=== PATIENT | male | born 1975 | race Caucasian/White ===

== ENCOUNTER 2016-09-27 04:55 | Emergency (ER) | payer BC ==
[~2016-09-27] VITALS: Ht 182.9 cm; Wt 90.1 kg
[2016-09-27 05:01] VITALS: TEMP 37; Ht 182.9 cm; Wt 90.1 kg
[2016-09-27] MEDS ORDERED: ONDANSETRON INJ 2 MG/ML 2 ML VIAL IV STA (05:19)
[2016-09-27] MEDS ORDERED: KETOROLAC TROMETHAMINE 30 MG/ML VIAL IV STA (05:19)
[2016-09-27] MEDS ORDERED: SODIUM CHLORIDE 0.9% 1000ML 1,000 ML IV STA ×2 (05:19)
[2016-09-27] MEDS ORDERED: OPTIRAY 320 IV PRN (05:30)
[2016-09-27 05:43] LABS: URINE APPEARANCE CLEAR (CLEAR); URINE BILIRUBIN NEG (NEG); URINE COLOR DK YELLOW; URINE EPITHELIAL CELL AUTO 0-5 /lpf (0-5); URINE NITRITE NEG (NEG); URINE SPECIFIC GRAVITY 1.024 (1.000-1.030); UROBILINOGEN NEG (NEG); ZZUR CULT IF INDIC CLEAN CATCH NO
[2016-09-27 05:49] LABS: MANUAL MICROSCOPIC REQUIRED? NO; REVIEW REQ? NO
[2016-09-27 06:01] LABS: BASO % 0.2 %; BASO ABS # 0.02 K/uL (0-0.2); COMPLETE YES; EOS % 0.4 %; HEMATOCRIT 43.4 % (42-52); IG% 0.2 %; LYMPH % 17.7 %; LYMPH ABS # 2.02 K/uL (1.2-3.4); MEAN CELL VOLUME 86.6 fL (80-100); MEAN CORPUSCULAR HEMOGLOBIN 32.5 pg (25-34); MEAN CORPUSCULAR HGB CONC 37.6 g/dl (32-36); MEAN PLATELET VOLUME 9.8 fL (7.4-10.4); MONO % 6.4 %; NEUT % 75.1 %; PLATELET COUNT 189 K/uL (130-400); RED BLOOD COUNT 5.01 M/uL (4.7-6.1); WHITE BLOOD COUNT 11.42 K/uL (4.8-10.8)
[2016-09-27 06:03] LABS: ISTAT CREATININE 0.8 mg/dl (0.6-1.3); ISTAT IONIZED CALCIUM 1.19 mmol/l (1.12-1.32)
[2016-09-27 06:09] LABS: CALCIUM 9.2 mg/dl (8.5-10.1); CREATININE 0.93 mg/dl (0.60-1.40); POTASSIUM 3.8 mmol/L (3.5-5.1)
[2016-09-27] MEDS ORDERED: METRONIDAZOLE 250 MG TAB PO STA (06:47)
[2016-09-27] MEDS ORDERED: CIPROFLOXACIN 400MG / 200ML D5W IV STA (06:47)
[2016-09-27] MEDS ORDERED: METRONIDAZOLE 500MG / 100ML NSS IV STA (06:47)
[2016-09-27] MEDS ORDERED: CIPR-255 PO (06:51)
[2016-09-27] MEDS ORDERED: METR-163 PO (06:51)
--- NOTE | 2016-09-27 06:56 | DIAGNOSTIC IMAGING REPORT ---
TESTICULAR ULTRASOUND HISTORY: Pain right test pain COMPARISON: None. FINDINGS: Right testis: There are no intratesticular masses. Normal color flow. No hydrocele. The epididymis is unremarkable. Left testis: There are no intratesticular masses. Normal color flow. No hydrocele. The epididymis is unremarkable. IMPRESSION: Normal testicular ultrasound. Electronically signed by: Gene Goodson M.D. 09/27/2016 6:55 AM Dictated Date/Time: 09/27/2016 6:54 AM
[2016-09-27] MEDS ORDERED: CIPROFLOXACIN 500MG HOME PACK PO ONE (07:00)
[2016-09-27] MEDS ORDERED: OXYCODONE IR HOME PACK PO ONE (07:00)
[2016-09-27] MEDS ORDERED: ONDANSETRON HOME PACK 4MG OD TAB PO ONE (07:00)
--- NOTE | 2016-09-27 07:05 | DIAGNOSTIC IMAGING REPORT ---
ABDOMEN AND PELVIS CT WITH IV CONTRAST CT DOSE: 422.18 mGy.cm HISTORY: Pain lower abd pain TECHNIQUE: Multiaxial CT images of the abdomen and pelvis were performed following the use of intravenous contrast. COMPARISON STUDY: None. FINDINGS: Lung bases are clear. Mild fatty infiltration of liver. Spleen is unremarkable. Kidneys negative for hydronephrosis. Upper abdominal bowel pattern is nonobstructive. Within the pelvis there are findings of thickening of the proximal to mid sigmoid colonic wall. Pericolonic infiltrative changes present. No evidence for abscess collection or obstruction. The appendix is normal. IMPRESSION: 1. Acute proximal to mid sigmoid diverticulitis. 2. No evidence for abscess collection or obstruction Electronically signed by: Gene Goodson M.D. 09/27/2016 7:03 AM Dictated Date/Time: 09/27/2016 7:02 AM
[2016-09-27] MEDS ORDERED: EMPTY 8 DRAM VIAL ONE (07:30)
[2016-09-27 08:30] VITALS: BP 121/76; PULSE 78; O2SAT 98
--- NOTE | 2016-09-28 01:06 | EMERGENCY ROOM VISIT NOTE ---
History First contact with patient: 05:12 Chief Complaint: ABDOMINAL PAIN Stated Complaint: SEVERE LWR ABDOMINAL PAIN History of Present Illness The patient is a 41 year old male who presents to the Emergency Room with complaints of lower abdominal pain for the past 2 days that is steadily getting worse with right testicular pain. He describes pain as cramping, ranging in severity currently 5 out of 10. Nothing makes it better or worse. No colonoscopy in the past. Patient denies nausea, vomiting, diarrhea, penile pain , urinary symptoms, back pain, chest pain, dyspnea. He is tolerating by mouth fluids and food. No history of similar symptoms in the past. He is in a monogamous relationship. Review of Systems See HPI for pertinent positives & negatives. A total of 10 systems reviewed and were otherwise negative. Past Medical/Surgical History Gastritis Social History Smoking Status: Never Smoker Drug Use: none Marital Status: Housing Status: lives with family Occupation Status: employed Current/Historical Medications Scheduled Ciprofloxacin Hcl (Cipro), 500 MG PO BID Metronidazole (Flagyl), 500 MG PO TID Allergies Coded Allergies: Penicillin V (Verified Allergy, Mild, UNKNOWN, 09/27/16) Physical Exam Vital Signs Date Time Temp Pulse Resp B/P Pulse Ox O2 Delivery O2 Flow Rate FiO2 09/27/16 08:30 78 18 121/76 98 09/27/16 05:01 37.0 85 20 142/82 96 Room Air Physical Exam VITALS: Vitals are noted on the nurse's note and reviewed by myself. Vital signs stable. GENERAL: Pleasant male, in no acute distress, nondiaphoretic, well-developed well-nourished. SKIN: The skin was without rashes, erythema, edema, or bruising. There is no tenting of the skin. Capillary reflex less than 2 seconds. HEAD: Normocephalic atraumatic. EARS: External auditory canals clear, tympanic membranes pearly silva without erythema or effusion bilaterally. EYES: Pupils equal round and reactive to light and accommodation. Conjunctivae without injection, sclerae without icterus. Extraocular movements intact. NOSE: Patent, turbinates without inflammation or discharge. MOUTH: Mucous membranes moist. Pharynx without erythema or exudate. Uvula midline. Airway patent. Tongue does not deviate. NECK: Supple without nuchal rigidity. No lymphadenopathy. No thyromegaly. Cervical spine is nontender. No JVD. HEART: Regular rate and rhythm without murmurs gallops or rubs. LUNGS: Clear to auscultation bilaterally without wheezes, rales or rhonchi. No dullness to percussion. No retractions or accessory muscle use. ABDOMEN: Positive bowel sounds x 4. Normal tympanic percussion. Soft, tender to palpation lower abdomen, no CVA tenderness, without masses or organomegaly. Pulido sign negative. No guarding or rebound tenderness. exam: Right epididymis tender to palpation, no lesions or rashes appreciated. Left testicle normal. Seamer Panty Hose present MUSCULOSKELETAL: No muscle atrophy, erythema, or edema noted. NEURO: Patient was alert and oriented to person place and time. Normal sensation to light and sharp touch. No focal neurological deficits. Medical Decision & Procedures Laboratory Results 09/27/16 05:40 Red Blood Count 5.01, Mean Corpuscular Volume 86.6, Mean Corpuscular Hemoglobin 32.5, Mean Corpuscular Hemoglobin Concent 37.6, Mean Platelet Volume 9.8, Neutrophils (%) (Auto) 75.1, Lymphocytes (%) (Auto) 17.7, Monocytes (%) (Auto) 6.4, Eosinophils (%) (Auto) 0.4, Basophils (%) (Auto) 0.2, Neutrophils # (Auto) 8.58, Lymphocytes # (Auto) 2.02, Monocytes # (Auto) 0.73, Eosinophils # (Auto) 0.05, Basophils # (Auto) 0.02 09/27/16 05:40 Test 09/27/16 05:25 09/27/16 05:40 09/27/16 05:50 Urine Color DK YELLOW Urine Appearance CLEAR (CLEAR) Urine pH 5.0 (4.5-7.5) Urine Specific [place] 1.024 (1.000-1.030) Urine Protein NEG (NEG) Urine Glucose (UA) NEG (NEG) Urine Ketones TRACE (NEG) Urine Occult Blood TRACE (NEG) Urine Nitrite NEG (NEG) Urine Bilirubin NEG (NEG) Urine Urobilinogen NEG (NEG) Urine Leukocyte Esterase NEG (NEG) Urine WBC (Auto) 1-5 /hpf (0-5) Urine RBC (Auto) 0-4 /hpf (0-4) Urine Hyaline Casts (Auto) 1-5 /lpf (0-5) Urine Epithelial Cells (Auto) 0-5 /lpf (0-5) Urine Bacteria (Auto) NEG (NEG) White Blood Count 11.42 K/uL (4.8-10.8) Red Blood Count 5.01 M/uL (4.7-6.1) Hemoglobin 16.3 g/dL (14.0-18.0) Hematocrit 43.4 % (42-52) Mean Corpuscular Volume 86.6 fL (80-100) Mean Corpuscular Hemoglobin 32.5 pg (25-34) Mean Corpuscular Hemoglobin Concent 37.6 g/dl (32-36) Platelet Count 189 K/uL (130-400) Mean Platelet Volume 9.8 fL (7.4-10.4) Neutrophils (%) (Auto) 75.1 % Lymphocytes (%) (Auto) 17.7 % Monocytes (%) (Auto) 6.4 % Eosinophils (%) (Auto) 0.4 % Basophils (%) (Auto) 0.2 % Neutrophils # (Auto) 8.58 K/uL (1.4-6.5) Lymphocytes # (Auto) 2.02 K/uL (1.2-3.4) Monocytes # (Auto) 0.73 K/uL (0.11-0.59) Eosinophils # (Auto) 0.05 K/uL (0-0.5) Basophils # (Auto) 0.02 K/uL (0-0.2) RDW Standard Deviation 40.7 fL (36.4-46.3) RDW Coefficient of Variation 12.7 % (11.5-14.5) Immature Granulocyte % (Auto) 0.2 % Immature Granulocyte # (Auto) 0.02 K/uL (0.00-0.02) Est Creatinine Clear Calc Drug Dose 113.6 ml/min Estimated GFR () 116.9 Estimated GFR (Non- 100.9 BUN/Creatinine Ratio 19.0 (10-20) Calcium Level 9.2 mg/dl (8.5-10.1) Bedside Hemoglobin 15.0 g/dl (14.0-18.0) Bedside Hematocrit 44 % (42-52) Bedside Sodium 141 mEq/L (135-144) Bedside Potassium 3.8 mEq/L (3.3-5.0) Bedside Chloride 101 mEq/L (101-112) Bedside Total CO2 25 mEq/l (24-31) Anion Gap 20.0 mmol/L (16-25) Bedside Blood Urea Nitrogen 18 mg/dl (7-18) Bedside Creatinine 0.8 mg/dl (0.6-1.3) Bedside Glucose (other) 104 mg/dl (70-99) Bedside Ionized Calcium (Frank) 1.19 mmol/l (1.12-1.32) Medications Administered Medications (Trade) Dose Ordered Sig/Enrique Route Start Time Stop Time Status Last Admin Dose Admin Sodium Chloride 1,000 ml @ 999 mls/hr Q1H1M STAT IV 09/27/16 05:19 09/27/16 06:19 DC 09/27/16 05:40 999 MLS/HR Sodium Chloride (Nss 1000ml) 1,000 ml @ 125 mls/hr Q8H STAT IV 09/27/16 05:19 09/27/16 09:11 DC 09/27/16 07:36 125 MLS/HR Ondansetron HCl (Zofran Inj) 4 mg NOW STAT IV 09/27/16 05:19 09/27/16 05:21 DC 09/27/16 05:40 4 MG Ketorolac Tromethamine (Toradol Inj) 30 mg NOW STAT IV 09/27/16 05:19 09/27/16 05:21 DC 09/27/16 05:40 30 MG Metronidazole (Flagyl / Nss) 500 mg NOW STAT IV 09/27/16 06:47 09/27/16 06:48 DC 09/27/16 07:36 500 MG Ciprofloxacin/ Dextrose (Cipro / D5w) 400 mg NOW STAT IV 09/27/16 06:47 09/27/16 06:48 DC 09/27/16 07:36 400 MG ED Course Prior records/ancillary studies reviewed. Triage Nursing notes reviewed. Additional history obtained from family. The patient's history was concerning for abdominal pain. Differential diagnosis: Etiologies such as appendicitis, epididymitis, diverticulitis, PUD, biliary pathology, UTI, pancreatitis, obstruction, mesenteric ischemia, aortic pathology , infections, inflammatory bowel disease, renal colic, as well as others were entertained. Physical examination findings: As above. ER treatment provided: Toradol, Zofran, IV fluids On reassessment the patient felt better. Diagnostics interpreted by me: The labs revealed leukocytosis. Negative urine Imaging studies: CT ABDOMEN & PELVIS: Acute sigmoid diverticulitis with focal sigmoid wall thickening, inflamed diverticulum, and mild pericolonic inflammatory changes. No evidence of drainable abscess or free air. Fecal-like distal small bowel contents may indicate stasis/delayed transit. No evidence of bowel obstruction. Normal appendix. Small fat-containing inguinal hernias. Radiologist: Tiffanie Quinn MD Exam and history seem consistent with diverticulitis. Patient felt much better to be medicated as above. Patient was afebrile and nontoxic. No abscess. No free air. He did not have an acute abdomen on exam. He is well-appearing. He is tolerating fluids. He is advised take medications as directed and to follow- up family care in a few days or here in the ER sooner for abdominal pain, fevers , vomiting, worsening signs or symptoms or as needed.By the evaluation outlined above emergent etiologies such as appendicitis, PUD, biliary pathology, UTI, pancreatitis, obstruction, mesenteric ischemia, aortic pathology, infections, inflammatory bowel disease, renal colic, as well as others were deemed relatively unlikely. The pt informed about the findings as listed above. All questions were answered and pleased with the treatment. Return instructions were outlined and the patient was discharged in stable condition. Outpatient prescription management: [email or web address] flagyl Referral: The patient was referred back to their primary care physician for follow-up in 2 to 3 days for a recheck of the current condition. Case reviewed by attending Medical Decision As above Impression Primary Impression: Sigmoid diverticulitis Departure Information Dispostion Home / Self-Care Condition GOOD Prescriptions Metronidazole (Flagyl) 500 Mg Tab 500 MG PO TID for 14 Days, #42 TAB Prov: Krupa Hernandez .FARSHAD 09/27/16 Ciprofloxacin Hcl (CIPRO) 500 Mg Tab 500 MG PO BID for 14 Days, #28 TAB Prov: Krupa Hernandez PA-C 09/27/16 Referrals Isma Go M.D. (PCP) Patient Instructions My [facility] Additional Instructions DO NOT drive, drink alcohol, operate machinery, or perform dangerous activities today. You were given medications in the ER that can affect your ability to safely function or operate a vehicle. Zofran 4 m tablet every 6 hours as needed for nausea or vomiting. Oxycodone (OxyIR) 5mg: Take 1-2 pills every four hours for breakthrough pain. Avoid alcohol, operating machinery or dangerous equipment, working on ladders or roofs, DRIVING, or situations where being under the influence may be dangerous. It is recommended to use an [id number] stool softener such as Colace, 100mg twice daily while taking this medication to avoid constipation. Ciprofloxacin(Cipro) 500mg: Take one pill twice daily for 14 days for your bowel infection. All antibiotics can cause diarrhea. If this occurs and you feel worse or it does not resolve in 1-2 days follow up with your doctor or return to the Emergency Department as this could be signs of serious underlying problems. If you experience any pain in your tendons or any tendon injury return to the ER for re-evaluation. Any medication can cause an allergic reaction, stop the pills immediately and return to the ER for rash, hives, breathing difficulties, or swelling. Metronidazole(Flagyl) 500mg: Take one pill 3 times daily for 14 days for your bowel infection. DO NOT drink alcohol or take alcohol containing products with this medication. Any medication can cause an allergic reaction, stop the pills immediately and return to the ER for rash, hives, breathing difficulties, or swelling. Ibuprofen(Motrin, Advil) may be used for fever or pain. Use 600mg every six hours as needed. Take with food. Avoid using more than 2400mg in a 24 hour period. Do not use 2400mg per day for more than three consecutive days without physician direction. Prolonged inappropriate use can lead to stomach upset or ulcers. (AND/OR) Acetaminophen(Tylenol) may be used for fever or pain. Use 1000mg every six hours as needed. Avoid using more than 3000mg in a 24 hour period. Rest and drink plenty of fluids as tolerated. Slow sips of water or sports drinks are recommended instead of large amounts all at once. Continue current medications. Once your stomach is settled start with a clear liquid diet (jello, soup broth, etc.) and then advance as tolerated. You should avoid full, heavy meals for about 24 hrs from the time your symptoms resolved. Return to the ER immediately for worsening or persistent abdominal pain, vomiting, fevers, chest pains, difficulty breathing, black or bloody stools, worsening of your condition, or as needed. 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
== END 2016-09-27 08:48 | disposition home or self-care (01) ==
LOC: C.EDB 04:56 → C.EDA 08:48
DX: K57.92 Diverticulitis of intestine, part unspecified, without perforation or abscess without bleeding (principal)